=== PATIENT | female | born 1965 | race Caucasian/White ===

== ENCOUNTER 2016-09-15 14:23 | Emergency (ER) | payer OTHER ==
[2016-09-15 14:09] LABS: URINE SOURCE CLEAN CATCH
[2016-09-15 14:12] LABS: URINE APPEARANCE CLEAR; URINE BILIRUBIN NEG (NEG); URINE BLOOD TRACE-INTACT (NEG); URINE COLOR YELLOW; URINE GLUCOSE NEG (NORM); URINE KETONE NEG (NEG); URINE LEUKOCYTE ESTERASE NEG (NEG); URINE NITRATE NEG (NEG); URINE PH 6.5 (5-8); URINE PROTEIN NEG (NEG); URINE SPECIFIC GRAVITY <=1.005 (1.003-1.035); URINE UROBILINOGEN 0.2 MG/DL (NORM)
[~2016-09-15 14:23] MED LIST: "\\\"WATER PILL\\\""; ASPIRIN BUFFER325 M2 PO; BACTRIM DS TABL1 TA1 PO; CELEXA20 M1; CLONAZEPAM0.5 MG/TAB PO; DESYREL50 MG PO; FLEXERIL10 MG PO; HYDROCHLOROTH12.5 M1 PO; HYDROCODON-ACE1 EAC5 PO; IBUPROFEN800 MG PO; LORTAB 7.5-5001 TAB PO; NAPROSYN500 MG PO; NEURONTIN600 MG PO; NO MEDICATIONS; PERCOCET7.5 PO; PHENTERMINE H37.5 M1 PO; PRINIVIL20 M1 PO; SENOKOT S1 TA1 DOB; TOPAMAX25 MG PO; VITAMINS A-D-E1 EACH PO; ZOFRAN PO
[2016-09-15 14:30] LABS: MICRO INDICATED? YES
[2016-09-15 14:48] LABS: CULTURE INDICATED? NO; URINE BACTERIA NEG (NEG); URINE RBC 0-2 /[HPF] (0-2); URINE WBC 0-2 /[HPF] (0-5)
[2016-09-15] MEDS ORDERED: CITROMA PO (15:21)
== END 2016-09-15 15:21 | disposition home or self-care (01) ==
LOC: SED 14:23
PROVIDERS: Emergency Medicine
DX: K59.00 Constipation, unspecified (principal); I10 Essential (primary) hypertension; F41.9 Anxiety disorder, unspecified; F32.9 Major depressive disorder, single episode, unspecified; F17.200 Nicotine dependence, unspecified, uncomplicated; Z79.899 Other long term (current) drug therapy
CPT/HCPCS: 81003; 99284